=== PATIENT | female | born 1965 | race Hispanic/Latino ===

== ENCOUNTER 2018-12-31 14:26 | Emergency (ER) | payer SELFPAY ==
[2018-12-31 14:45] VITALS: TEMP 99.2
[2018-12-31] MEDS ORDERED: methylPREDNISolone SODIUM SUC 125 MG/2 ML VIAL IV ONE (14:51)
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
[2018-12-31] MEDS ORDERED: LEVALBUTEROL NEBS 1.25 MG/3 ML VIAL NEB ONE (14:52)
--- NOTE | 2018-12-31 15:20 | RAD ---
EXAM: Chest,1 View CLINICAL INDICATION: Shortness of breath COMPARISON: There is no previous study for comparison. FINDINGS: A single view of the chest was obtained. The heart size is normal. The pulmonary vascularity is unremarkable. The lungs are clear. There is no consolidation, infiltrate, pleural effusion, or pneumothorax. IMPRESSION: No evidence of active pulmonary disease. Electronically signed by: Saturnino Zhang MD 12/31/2018 3:17 PM CDT
[2018-12-31 15:54] VITALS: BP 134/82; O2SAT 97
== END 2018-12-31 16:31 | disposition home or self-care (01) ==
LOC: ER 14:26
DX: T60.91XA Toxic effect of unspecified pesticide, accidental (unintentional), initial encounter (principal); J68.9 Unspecified respiratory condition due to chemicals, gases, fumes and vapors; R06.9 Unspecified abnormalities of breathing; R09.81 Nasal congestion; J02.9 Acute pharyngitis, unspecified; H93.12 Tinnitus, left ear; H66.92 Otitis media, unspecified, left ear; Y92.009 Unspecified place in unspecified non-institutional (private) residence as the place of occurrence of the external cause
CPT/HCPCS: 71045; J2930